=== PATIENT | male | born 1955 | race African-American/Black ===

== ENCOUNTER 2017-06-03 09:53 | Emergency (ER) | payer OTHER ==
[2017-06-03 11:16] LABS: Hematocrit 39 % (42-52); Hemoglobin 12.6 g/dl (14.0-18.0); Mean Corpuscular HGB Conc 33 g/dl (31-36); Mean Corpuscular Hemoglobin 28 pg (27-31); Mean Corpuscular Volume 85 fL (80-94); Mean Platelet Volume 9 um3 (7.4-10.4); Red Blood Count 4.53 10^6/ul (4.0-5.4); Red Cell Distribution Width 13 % (10.5-15)
[2017-06-03 11:33] LABS: Albumin 3.7 g/dL (3.2-5.2); BUN/Creatinine Ratio 8.5 (8-20); Calcium 8.7 mg/dL (8.6-10.3); EGFR African American 123.3 (>60); EGFR Non-African American 95.8 (>60); Globulin 3.1 g/dL (2-4); Total Bilirubin 0.3 mg/dL (0.2-1.0); Total Protein 6.8 g/dL (6.4-8.9)
[2017-06-03] MEDS ORDERED: Iodixanol* (CONTRAST) 320 MG/ML 100 ML SDV IV ONE (11:42)
[2017-06-03] MEDS ORDERED: NS 0.9% 1000 ML* 1,000 ML IV ONE (12:18)
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
[2017-06-03 14:08] LABS: Urine Bilirubin Negative (Negative); Urine Glucose 3+(>=500 mg/dL) (Negative); Urine Nitrite Negative (Negative)
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
--- NOTE | 2017-06-03 14:21 | RAD ---
Indication: Right knee pain. 2 views of the right knee demonstrates no joint effusion. Joint spaces are well-preserved. No fracture is identified. IMPRESSION: No fracture of the right knee is noted. No joint effusion is noted.
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
--- NOTE | 2017-06-03 14:22 | RAD ---
Indication: Elbow pain on the right. 2 views of the right elbow demonstrates no fracture although evaluation is limited. No joint effusion is noted. IMPRESSION: No definite fracture is noted although evaluation is limited due to poor positioning. No fracture is identified.
[2017-06-03] MEDS ORDERED: Acetaminophen TAB* 325 MG PO ONE (14:58)
[2017-06-03 16:07] VITALS: BP 136/71
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
== END 2017-06-03 16:07 | disposition home or self-care (01) ==
LOC: ED 09:53
DX: S06.0X9A Concussion with loss of consciousness of unspecified duration, initial encounter (principal); R51 Headache; S16.1XXA Strain of muscle, fascia and tendon at neck level, initial encounter; F17.210 Nicotine dependence, cigarettes, uncomplicated; Y09 Assault by unspecified means; Y93.9 Activity, unspecified; E11.9 Type 2 diabetes mellitus without complications; Z86.79 Personal history of other diseases of the circulatory system
CPT/HCPCS: 36415; 70450; 71260; 72125; 72131; 74177; 80053; 81003; 85025; 85610; 99282; A9270-GY